=== PATIENT | female | born 1980 | race Caucasian/White ===

== ENCOUNTER 2018-03-03 06:29 | Day surgery (SDC) | payer OTHER ==
[2018-03-03] MEDS ORDERED: SEVOFLURANE 15 MIN (07:00)
[2018-03-03] MEDS ORDERED: CEFAZOLIN 1 GM INJ (07:00)
[2018-03-03 07:36] LABS: ADD MAN DIFF? NO
[2018-03-03 07:40] LABS: WHITE BLOOD COUNT 4.4 10^3/ul (4.8-10.8)
[2018-03-03 07:40] LABS: BASOPHIL # 0.1 10^3/ul (0.0-0.1); BASOPHILS % 1.1 % (0.0-2.0); EOSINOPHILS # 0.1 10^3/ul (0.0-0.5); EOSINOPHILS % 1.8 % (0.0-7.0); HEMATOCRIT 38.5 % (37.0-47.0); HEMOGLOBIN 12.7 g/dl (12.0-16.0); LYMPHOCYTES # 1.4 10^3/ul (0.8-2.9); LYMPHOCYTES % 30.8 % (15.0-51.0); MEAN CORPUSCULAR HEMOGLOBIN 27.1 pg (29.0-33.0); MEAN CORPUSCULAR VOLUME 82.3 fl (82.0-101.0); MEAN PLATELET VOLUME 11.2 fl (7.4-10.4); MONOCYTE # 0.4 10^3/ul (0.3-0.9); NEUTROPHIL # 2.5 10^3/ul (1.6-7.5); NEUTROPHILS % 57.1 % (39.0-77.0); PLATELET COUNT 218 10^3/UL (140-415); RED BLOOD COUNT 4.68 10^6/ul (4.20-5.40); RED CELL DISTRIBUTION WIDTH 12.8 % (11.5-14.5)
[2018-03-03 07:52] LABS: HOLD TRANSMISSIONS 1
[2018-03-03] MEDS ORDERED: CEFAZOLIN 2 GM/50 ML (PMX) 50 ML IVPB (08:00)
[2018-03-03] MEDS ORDERED: SOD CHLORIDE 0.9% 1,000 ML IV (08:00)
[2018-03-03 08:04] LABS: INR 1.03; PROTIME 13.6 Sec (11.9-14.9); PT RATIO 1.1
[2018-03-03 08:05] LABS: PARTIAL THROMBOPLASTIN TIME 29.9 Sec (23.0-35.0)
[2018-03-03 08:06] LABS: ALANINE AMINOTRANSFERASE 39 IU/L (13-69); ALBUMIN 4.5 g/dl (3.3-4.9); ALBUMIN/GLOBULIN RATIO 1.28; ALKALINE PHOSPHATASE 168 IU/L (42-121); ANION GAP 11 (5-13); ASPARTATE AMINO TRANSFERASE 40 IU/L (15-46); BILIRUBIN,INDIRECT 0.4 mg/dl (0-1.1); BILIRUBIN,TOTAL 0.4 mg/dl (0.2-1.3); BLOOD UREA NITROGEN 10 mg/dl (7-20); CALCIUM 9.3 mg/dl (8.4-10.2); CARBON DIOXIDE 22 mmol/L (21-31); CHLORIDE 104 mmol/L (97-110); CREATININE 0.64 mg/dl (0.44-1.00); Estimated GFR > 60 mL/min (>60); GLUCOSE 91 mg/dl (70-220); POTASSIUM 4.5 mmol/L (3.5-5.1); SODIUM 137 mmol/L (135-144)
[2018-03-03] MEDS ORDERED: LIDOCAINE 2% (SDV) 5 ML INJ (09:23)
[2018-03-03] MEDS ORDERED: PROPOFOL 20 ML (09:23)
[2018-03-03] MEDS ORDERED: SUCCINYLCHOLINE CHLORIDE 100 MG/5 ML SYG IV (09:23)
[2018-03-03] MEDS ORDERED: GLYCOPYRROLATE 0.4 MG INJ ×2 (09:23→09:52)
[2018-03-03] MEDS ORDERED: NEOSTIGMINE 3 MG/3 ML SYRINGE (09:23)
[2018-03-03] MEDS ORDERED: MEPERIDINE 100 MG INJ (09:23)
[2018-03-03] MEDS ORDERED: ROCURONIUM 50 MG INJ (09:23)
[2018-03-03] MEDS ORDERED: ONDANSETRON 4 MG INJ (09:51)
[2018-03-03] MEDS ORDERED: METOCLOPRAMIDE 10 MG INJ (09:51)
[2018-03-03] MEDS ORDERED: DIPHENHYDRAMINE 50 MG INJ IV (10:00)
[2018-03-03] MEDS ORDERED: METOCLOPRAMIDE 10 MG INJ IV (10:00)
[2018-03-03] MEDS ORDERED: FENTAnyl 50 MCG/ML VIAL IV ×2 (10:00)
[2018-03-03] MEDS ORDERED: MIDAZOLAM 1 MG/ML 2 ML INJ IV (10:00)
[2018-03-03] MEDS ORDERED: MEPERIDINE 25 MG INJ IV (10:00)
[2018-03-03] MEDS ORDERED: HYDROmorphONE 1 MG/5 ML IV SYRINGE IV ×2 (10:00)
[2018-03-03] MEDS ORDERED: OXYCODONE/ACETAMINOPHEN (5/325) TAB PO ×2 (10:00)
[2018-03-03] MEDS: BUPIVACAINE 0.25% (MPF) 30 ML INJ (10:22)
[2018-03-03] MEDS: FENTAnyl 50 MCG/ML VIAL IV ×2 (10:31→10:46)
[2018-03-03] MEDS: ONDANSETRON 4 MG INJ IV (10:32)
[2018-03-03] MEDS: HYDROmorphONE 1 MG/5 ML IV SYRINGE IV ×2 (10:32→10:45)
[2018-03-03] MEDS: HYDROCODONE/APAP (5/325) TAB PO (11:29)
== END 2018-03-03 12:47 | disposition home or self-care (01) ==
LOC: SDS 06:29
DX: K80.80 Other cholelithiasis without obstruction (principal)
CPT/HCPCS: 47562; 80053; 84703; 85025; 85610; 85730; 88304